=== PATIENT | female | born 1970 ===

== ENCOUNTER 2016-11-24 05:56 | Day surgery (SDC) | payer BC, MEDICARE ==
--- NOTE | 2016-11-24 07:18 | Anesthesia Consultation ---
Anesthesia Consult and Med Hx Date of service: 11/24/16 - Airway Anesthetic Teeth Evaluation: Good ROM Head & Neck: Adequate Mental/Hyoid Distance: Adequate Mallampati Class: Class III Intubation Access Assessment: Possibly Difficult - Pre-Operative Health Status ASA Pre-Surgery Classification: ASA3 Proposed Anesthetic Plan: MAC - Pulmonary Hx Sleep Apnea: Yes - Cardiovascular System Hx Hypertension: Yes - Central Nervous System Hx Back Pain: Yes (lower back surgery) Hx Psychiatric Problems: Yes (Depression, ADHD) - Gastrointestinal Hx Gastroesophageal Reflux Disease: Yes (s/p gastric bypass 2003) - Other Systems Hx Obesity: Yes
--- NOTE | 2016-11-24 07:18 | Anesthesia Day of Surgery ---
Anesthesia Day of Surgery - Day of Surgery Patient Examined: Yes Patient H&P Reviewed: Yes Patient is NPO: Yes
[2016-11-24] MEDS ORDERED: WATER FOR IRRIG STERILE IR ONE (07:26)
[2016-11-24] MEDS ORDERED: DIPRIVAN 10 MG/ML IV ONE ×2 (07:36→08:02)
--- NOTE | 2016-11-24 07:56 | Operative Report ---
Operative Report Operative Report: EGD Post bypass DATE: 11/24/16 OPERATIVE REPORT - EGD PREOP DIAGNOSIS: gastric dyspepsia POSTOP DIAGNOSIS: same SURGERY: Upper endoscopy. SURGEON: Dr. Bon Loera BUSINESS ECONOMIST: Josy Chung DO TYPE OF ANESTHESIA: MAC. ESTIMATED BLOOD LOSS: None. COMPLICATIONS: None. SPECIMENS REMOVED: None. FINDINGS: 1. normal esophagus 2. gastric pouch - 40 0ml 3. gastrojejunal anastomosis is 20 mm INDICATIONS:INDICATION FOR PROCEDURE: Patient is a 46year-old F s/p gastric bypass in 2003. The patient is here today for evaluation for revisional surgery. The patient is here for a planned EGD for gastric dyspepsia. PROCEDURE DETAILS: After consent was reviewed, patient was taken back to the operating room where patient was placed in the left lateral decubitus position and a bite block was placed in the mouth. After a time-out was called, MAC anesthesia was initiated. I then passed the endoscope into the patients oropharynx, into the esophagus, visualized the entire esophagus, which was all within normal limits. I then visualized the gastric pouch which was normal and about 40ml in size. The gastrojejunal anastomosis was normal at about 20mm. The proximal portion of the erin limb was normal. I then desufflated the gastric pouch and removed the endoscope. Patient tolerated procedure well and was transferred to recovery room in good and stable condition
[2016-11-24] MEDS ORDERED: NACL 0.9% 1000 ML 1,000 ML IV SCH (08:00)
[2016-11-24] MEDS ORDERED: XYLOCAINE MPF 2% ONE ×2 (08:00→12:00)
--- NOTE | 2016-11-24 08:00 | Discharge Summary ---
Providers - Providers Attending physician: SEJAL CROUCH Hospitalization Condition: Good Procedures: EGD Hospital course: 46 y.o. F admitted with hx of gastric bypass in 2003 presented for EGd. She tolerated the procedure well and was discharged home the same day. Disposition: DC-01 TO HOME OR SELFCARE Core Measure Documentation - Palliative Care Palliative Care/ Comfort Measures: Not Applicable - Core Measures Any of the following diagnoses?: none Exam - Physical Exam Narrative exam: no change from prior - Constitutional Vitals: Temp Pulse Resp BP Pulse Ox 98.9 F 56 L 17 156/77 100 11/24/16 07:36 11/24/16 07:36 11/24/16 07:36 11/24/16 07:36 11/24/16 07:36 Plan Activity: no restrictions Diet: clear liquids, other (high protien) Additional Instructions: follow up in office to discuss results. Follow up with: SEJAL CROUCH MD [Staff Physician] - 7 Days
[2016-11-24 08:27] VITALS: BP 131/81
[2016-11-24] MEDS ORDERED: ROBINUL ONE (12:00)
[2016-11-24] MEDS ORDERED: BREVIBLOC IV ONE (12:00)
--- NOTE | 2016-11-24 12:47 | Post Anesthesia Evaluation ---
- Post Anesthesia Evaluation Patient Participated: Yes Airway Patent: Yes Stable Respiratory Function: Yes Nausea/Vomiting: No Temp > 96.8F: Yes Pain Manageable: Yes Adequeate Hydration: Yes Anesthesia Complications: No Block Receding Appropriately: Not Applicable Patient on Ventilator: No
== END 2016-11-24 05:57 | disposition home or self-care (01) ==
LOC: GIO 05:56
PROVIDERS: ATTEND Specialist
DX: K21.9 Gastro-esophageal reflux disease without esophagitis (principal); R10.13 Epigastric pain; I10 Essential (primary) hypertension; K91.1 Postgastric surgery syndromes; Z98.84 Bariatric surgery status; Z98.890 Other specified postprocedural states; Z82.49 Family history of ischemic heart disease and other diseases of the circulatory system
CPT/HCPCS: 43235; J2704; J7030

== ENCOUNTER 2016-12-24 11:00 | Outpatient (CLI) | payer BC, MEDICARE | END 2016-12-24 11:01 | disposition home or self-care (01) | LOC: SLR 11:00 | PROVIDERS: ATTEND Specialist | DX: G47.30 Sleep apnea, unspecified (principal) | CPT/HCPCS: G0399 ==